=== PATIENT | female | born 1980 | race Caucasian/White ===

== ENCOUNTER 2016-11-11 01:21 | Emergency (ER) | payer OTHER ==
[~2016-11-11] VITALS: Ht 167.6 cm; Wt 77.5 kg
[~2016-11-11 01:21] MED LIST: AZIT250T94 PO; CALC500T PO; IBUP-1542 PO; PREN-39 PO; UDROBDM PO
[2016-11-11 01:24] VITALS: Ht 167.6 cm; Wt 77.5 kg
--- NOTE | 2016-11-11 02:32 | ERD ---
ER Documentation Chief Complaint Date/Time DATE: 11/11/16 TIME: 02:31 Chief Complaint 14 weeks , pelvic pain, back pain HPI 36-year-old female presents here in emergency department for complaints of pelvic pain and lower back pain started 2 days ago. Patient is approximately 14 weeks , 5 para 4 0. Patient denies any vaginal bleeding. Patient denies any fever or chills. Patient denies any nausea or vomiting. Patient denies hematuria or dysuria. Patient denies any vaginal discharge. Patient described the pain as sharp pain, 6/10 scale, not better or worse with anything. Patient denies any trauma on affected area. ROS All systems reviewed and are negative except as per history of present illness. Medications Home Meds Active Scripts Acetaminophen* (Tylophen*) 500 Mg Capsule, 1 CAP PO Q6H Y for PAIN AND OR ELEVATED TEMP, #20 CAP Prov:KATIE BHAKTA NP 11/11/16 Ibuprofen* (Motrin*) 600 Mg Tab, 600 MG PO Q6, #30 TAB Prov:TORSTEN MCFARLANE PA-C 05/14/16 Azithromycin* (Zithromax*) 250 Mg Tablet, 250 MG PO .ZPACK DIRECTED, #6 TAB TAKE 500 MG (2 TABS) THE FIRST DAY THEN 250 MG (1 TAB) DAYS 2-5 Prov:ERI ARRIETA DO 07/16/15 Guaifenesin-Dextromethorphan* (Robitussin* DM) 100MG/10MG/5ML Syrup, 10 ML PO Q6H Y for COUGH for 7 Days, ML Prov:ERI ARRIETA DO 07/16/15 Reported Medications Calcium Carbonate (Calcium 500) 1 Tab Tablet, 1 TAB PO DAILY 09/26/13 Vits W-Ca,Fe,Fa(<1MG) ( Vitamins) 1 Tab Tablet, 1 TAB PO DAILY 09/26/13 Allergies Allergies: Coded Allergies: No Known Allergy (Unverified , 09/26/13) PMhx/Soc Medical and Surgical Hx: pt denies Medical Hx, pt denies Surgical Hx History of Surgery: No ([facility]X.) Hx Alcohol Use: No Hx Substance Use: No Hx Tobacco Use: No Smoking Status: Never smoker FmHx Family History: diabetes Physical Exam Vitals Vital Signs Date Time Temp Pulse Resp B/P Pulse Ox O2 Delivery O2 Flow Rate FiO2 11/11/16 01:24 98.6 99 20 137/83 98 Physical Exam GENERAL: The patient is well developed and appropriate for usual state of health, in no apparent distress. CHEST: Clear to auscultation bilaterally. There are no rales, wheezes or rhonchi. HEART: Regular rate and rhythm. No murmurs, clicks, rubs or gallops. No S3 or S4. ABDOMEN: Soft, nontender and nondistended. Good bowel sounds. No rebound or guarding. No gross peritonitis. No gross organomegaly or masses. No Mcleod sign or McBurney point tenderness. BACK: No midline or flank tenderness. EXTREMITIES: Equal pulses bilaterally. There is no peripheral clubbing, cyanosis or edema. No focal swelling or erythema. Full range of motion. Grossly neurovascularly intact. NEURO: Alert and oriented. Cranial nerves 2-12 intact. Motor strength in all 4 extremities with 5/5 strength. Sensation grossly intact. Normal speech and gait. SKIN: There is no apparent rash or petechia. The skin is warm and dry. HEMATOLOGIC AND LYMPHATIC: There is no evidence of excessive bruising or lymphedema. No gross cervical, axillary, or inguinal lymphadenopathy. Result Diagram: 11/11/16 0245 11/11/16 0245 Results 24 hrs Laboratory Tests Test 11/11/16 02:45 White Blood Count 12.710^3/ul Red Blood Count 4.4110^6/ul Hemoglobin 14.0g/dl Hematocrit 38.4% Mean Corpuscular Volume 87.1fl Mean Corpuscular Hemoglobin 31.7pg Mean Corpuscular Hemoglobin Concent 36.5g/dl Red Cell Distribution Width 12.7% Platelet Count 45837^3/UL Mean Platelet Volume 10.8fl Neutrophils % 68.6% Lymphocytes % 23.9% Monocytes % 5.1% Eosinophils % 1.3% Basophils % 0.2% Nucleated Red Blood Cells % 0.0/100WBC Neutrophils # 8.710^3/ul Lymphocytes # 3.010^3/ul Monocytes # 0.610^3/ul Eosinophils # 0.210^3/ul Basophils # 0.010^3/ul Nucleated Red Blood Cells # 0.010^3/ul Urine Color STRAW Urine Clarity CLEAR Urine pH 5.0 Urine Specific [place] 1.009 Urine Ketones NEGATIVEmg/dL Urine Nitrite NEGATIVEmg/dL Urine Bilirubin NEGATIVEmg/dL Urine Urobilinogen NEGATIVEmg/dL Urine Leukocyte Esterase NEGATIVELeu/ul Urine Hemoglobin NEGATIVEmg/dL Urine Glucose NEGATIVEmg/dL Urine Total Protein NEGATIVEmg/dl Sodium Level 136mmol/L Potassium Level 3.7mmol/L Chloride Level 105mmol/L Carbon Dioxide Level 24mmol/L Anion Gap 11 Blood Urea Nitrogen 8mg/dl Creatinine 0.46mg/dl Glucose Level 98mg/dl Calcium Level 9.2mg/dl Total Bilirubin 0.0mg/dl Direct Bilirubin 0.00mg/dl Indirect Bilirubin 0.0mg/dl Aspartate Amino Transf (AST/SGOT) 19IU/L Alanine Aminotransferase (ALT/SGPT) 37IU/L Alkaline Phosphatase 57IU/L Total Protein 6.9g/dl Albumin 4.3g/dl Globulin 2.60g/dl Albumin/Globulin Ratio 1.65 Beta HCG, Quantitative 12407.0mIU/ml PROCEDURE: ULTRASOUND OBSTETRICAL CLINICAL INDICATION: 36-year-old female with pelvic pain. TECHNIQUE: Multiple sonographic images of the pelvis were obtained. The images were reviewed on a PACS workstation. COMPARISON: No prior studies are available for comparison. FINDINGS: The cervix is not well visualized. There is a single viable intrauterine gestation. Cardiac activity is present with 163 beats per minute. There is a breech presentation. Measurements were made in order to determine age. The results are as follows: BPD = 3.42 cm, HC = 12.07 cm, AC = 9.96 cm, FL = 2.18 cm. This yields and estimated gestational age of approximately 16 weeks 2 days. The estimated date of delivery is April 26, 2017. The EFW = 150 +/- 22 g . The GP is greater than 97%. The placenta is anterior. There is no evidence for an abruption or placenta previa. There is an adequate amount of amniotic fluid within maximal vertical pocket of 3.0 cm. IMPRESSION: Single viable intrauterine gestation of approximately 16 weeks 2 days. The estimated date of delivery is April 26, 2017. .Bandar Tavera MD, MD Date Time Electronically viewed and signed by .Bandar Tavera MD, MD on 11/11/2016 03:43 .M/ CC: KATIE BHAKTA NP Procedures/MDM Medical Decision Making: She has pelvic pain and lower back pain nonspecific at this time, possible musculoskeletal pain with her growing . No urinary tract infection. No symptoms of polynephritis. Patient is a viable without any complications. There is low suspicion for abdominal emergencies at this time. Patients abdominal exam is normal at this time. Patients radiology exam does not show any abdominal emergencies at this time. There is low suspicion for appendicitis, cholecystitis, abdominal aortic aneurysms or peritonitis at this time. There is low suspicion for sepsis. Patient appears well and is hemodynamically stable. No Leukocytosis, no fever, no bandemia. No suspicion for any acute bacterial infection at this time. Disposition: Home. Condition: Stable Prescription Tylenol Instructions: Patient is advised to take medications as prescribed. Patient is advised to rest, increase fluid intake and do brat diet for next 1-2 days and progress as tolerated. Patient is advised that if symptoms are worse, severe abdominal pain, uncontrolled vomiting, high fever, severe flank pain, worst signs and symptoms, to return to the emergency department immediately. Otherwise, patient can follow up with primary care doctor in 5-7 days. Departure Diagnosis: Primary Impression: Back pain Back pain location: low back pain Chronicity: acute Back pain laterality: bilateral Sciatica presence: without sciatica Qualified Code: M54.5 - Acute bilateral low back pain without sciatica Additional Impressions: Pelvic pain Intrauterine Condition: Stable Patient Instructions: Back Pain (Acute Or Chronic), Pelvic Pain In : Unclear (2-3 Trimester) Additional Instructions: Patient is advised to take medications as prescribed. Patient is advised to rest, increase fluid intake and do brat diet for next 1-2 days and progress as tolerated. Patient is advised that if symptoms are worse, severe abdominal pain , uncontrolled vomiting, high fever, severe flank pain, worst signs and symptoms , to return to the emergency department immediately. Otherwise, patient can follow up with primary care doctor in 5-7 days. KATIE BHAKTA NP Nov 11, 2016 02:32
[2016-11-11 03:11] LABS: ADD SCAN DIFF NO
[2016-11-11 03:13] LABS: BASOPHILS % 0.2 % (0.0-2.0); EOSINOPHILS # 0.2 10^3/ul (0.0-0.5); EOSINOPHILS % 1.3 % (0.0-7.0); HEMATOCRIT 38.4 % (37.0-47.0); LYMPHOCYTES % 23.9 % (15.0-51.0); MEAN CORPUSCULAR HEMOGLOBIN 31.7 pg (29.0-33.0); MEAN CORPUSCULAR HGB CONC 36.5 g/dl (32.0-37.0); MEAN CORPUSCULAR VOLUME 87.1 fl (82.0-101.0); MEAN PLATELET VOLUME 10.8 fl (7.4-10.4); MONOCYTE # 0.6 10^3/ul (0.3-0.9); MONOCYTES % 5.1 % (0.0-11.0); NEUTROPHIL # 8.7 10^3/ul (1.6-7.5); NEUTROPHILS % 68.6 % (39.0-77.0); PLATELET COUNT 183 10^3/UL (140-415); RED BLOOD COUNT 4.41 10^6/ul (4.20-5.40); RED CELL DISTRIBUTION WIDTH 12.7 % (11.5-14.5); WHITE BLOOD COUNT 12.7 10^3/ul (4.8-10.8)
[2016-11-11 03:43] LABS: ADD UMIC NO; UR ASCORBIC ACID NEGATIVE (NEGATIVE); UR BILIRUBIN (Dip) NEGATIVE (NEGATIVE); UR BLOOD (Dip) NEGATIVE (NEGATIVE); UR CLARITY CLEAR (CLEAR); UR COLOR STRAW (YELLOW); UR GLUCOSE (Dip) NEGATIVE (NEGATIVE); UR KETONES (Dip) NEGATIVE (NEGATIVE); UR LEUKOCYTE ESTERASE (Dip) NEGATIVE Leu/ul (NEGATIVE); UR NITRITE (Dip) NEGATIVE (NEGATIVE); UR SPECIFIC GRAVITY (Dip) 1.009 (1.003-1.030); UR TOTAL PROTEIN (Dip) NEGATIVE (NEGATIVE); UR UROBILINOGEN (Dip) NEGATIVE (NEGATIVE)
--- NOTE | 2016-11-11 03:43 | RADRPT ---
PROCEDURE: ULTRASOUND OBSTETRICAL CLINICAL INDICATION: 36-year-old female with pelvic pain. TECHNIQUE: Multiple sonographic images of the pelvis were obtained. The images were reviewed on a PACS workstation. COMPARISON: No prior studies are available for comparison. FINDINGS: The cervix is not well visualized. There is a single viable intrauterine gestation. Cardiac activit y is present with 163 beats per minute. There is a breech presentation. Measurements were made in or raul to determine age. The results are as follows: BPD = 3.42 cm, HC = 12.07 cm, AC = 9.96 cm, FL = 2.18 cm. This yields and estimated gestational ag e of approximately 16 weeks 2 days. The estimated date of delivery is April 26, 2017. The EFW = 150 +/- 22 g . The GP is greater than 97%. The placenta is anterior. There is no evidence for an abruption or placenta previa. There is an adequate amount of amniotic fluid within maximal vertical pocket of 3.0 cm. IMPRESSION: Single viable intrauterine gestation of approximately 16 weeks 2 days. The estimated date of delive ry is April 26, 2017. .Bandar Tavera MD, Date Time Electronically viewed and signed by .Bandar Tavera MD, on 11/11/2016 03:43 .M/
[2016-11-11 03:45] LABS: ALBUMIN 4.3 g/dl (3.3-4.9); ALBUMIN/GLOBULIN RATIO 1.65; CALCIUM 9.2 mg/dl (8.4-10.2); CREATININE 0.46 mg/dl (0.44-1.00); POTASSIUM 3.7 mmol/L (3.5-5.1); TOTAL PROTEIN 6.9 g/dl (6.1-8.1)
[2016-11-11] MEDS ORDERED: ACET500C5 PO (04:14)
[2016-11-11 04:56] VITALS: BP 133/77; PULSE 81; RESP 20; TEMP 98.6
== END 2016-11-11 04:57 | disposition home or self-care (01) ==
LOC: FTE 01:21
DX: O99.89 Other specified diseases and conditions complicating pregnancy, childbirth and the puerperium (principal); R10.2 Pelvic and perineal pain; M54.5 Low back pain; Z3A.14 14 weeks gestation of pregnancy
CPT/HCPCS: 36415; 76805; 80053; 81003; 84702; 85025; 86900; 86901; Z7502

== ENCOUNTER 2017-02-26 18:05 | Outpatient (CLI) | payer OTHER ==
[~2017-02-26] VITALS: Ht 154.9 cm; Wt 81.7 kg
[~2017-02-26 18:05] MED LIST changes: +ACET500C5 PO
[2017-02-26 18:50] VITALS: Ht 154.9 cm; Wt 81.7 kg
[2017-02-26 19:47] LABS: ADD UMIC NO; UR ASCORBIC ACID NEGATIVE (NEGATIVE); UR BACTERIA MANY /HPF (NONE SEEN); UR BILIRUBIN (Dip) NEGATIVE (NEGATIVE); UR BLOOD (Dip) NEGATIVE (NEGATIVE); UR CLARITY SLIGHTLY CLOUDY (CLEAR); UR COLOR YELLOW (YELLOW); UR GLUCOSE (Dip) NEGATIVE (NEGATIVE); UR KETONES (Dip) 1+ mg/dL (NEGATIVE); UR LEUKOCYTE ESTERASE (Dip) NEGATIVE Leu/ul (NEGATIVE); UR NITRITE (Dip) NEGATIVE (NEGATIVE); UR RBC 0 /HPF (0-5); UR SPECIFIC GRAVITY (Dip) 1.011 (1.003-1.030); UR SQUAMOUS EPITHELIAL CELL MODERATE /HPF (FEW); UR TOTAL PROTEIN (Dip) NEGATIVE (NEGATIVE); UR UROBILINOGEN (Dip) NEGATIVE (NEGATIVE)
[2017-02-26 19:52] LABS: ALBUMIN 3.6 g/dl (3.3-4.9); ALBUMIN/GLOBULIN RATIO 1.09; BILIRUBIN,INDIRECT 0.2 mg/dl (0-1.1); BILIRUBIN,TOTAL 0.2 mg/dl (0.2-1.3); CREATININE 0.44 mg/dl (0.44-1.00); POTASSIUM 3.5 mmol/L (3.5-5.1); TOTAL PROTEIN 6.9 g/dl (6.1-8.1); URIC ACID 4.3 mg/dl (3.1-7.9)
[2017-02-26 19:55] LABS: INR 0.92; PROTIME 12.4 Sec (12.2-14.2)
[2017-02-26 19:56] LABS: PARTIAL THROMBOPLASTIN TIME 21.7 Sec (25.0-35.0)
[2017-02-26 19:58] LABS: BASOPHILS % 0.3 % (0.0-2.0); EOSINOPHILS # 0.1 10^3/ul (0.0-0.5); EOSINOPHILS % 1.1 % (0.0-7.0); HEMOGLOBIN 13.8 g/dl (12.0-16.0); LYMPHOCYTES # 1.8 10^3/ul (0.8-2.9); LYMPHOCYTES % 15.4 % (15.0-51.0); MEAN CORPUSCULAR HEMOGLOBIN 31.2 pg (29.0-33.0); MEAN CORPUSCULAR HGB CONC 35.4 g/dl (32.0-37.0); MEAN PLATELET VOLUME 11.9 fl (7.4-10.4); MONOCYTE # 0.5 10^3/ul (0.3-0.9); MONOCYTES % 4.1 % (0.0-11.0); NEUTROPHIL # 9.1 10^3/ul (1.6-7.5); PLATELET COUNT 150 10^3/UL (140-415); RED BLOOD COUNT 4.43 10^6/ul (4.20-5.40); RED CELL DISTRIBUTION WIDTH 13.2 % (11.5-14.5); WHITE BLOOD COUNT 11.7 10^3/ul (4.8-10.8)
[2017-02-26 20:09] LABS: POSITIVE DIFF @See below
--- NOTE | 2017-02-26 20:30 | RADRPT ---
PROCEDURE: US biophysical profile. CLINICAL INDICATION: Hypertension. TECHNIQUE: Multiple sonographic images of the uterus were obtained. The images were revi ewed on a PACS workstation. COMPARISON: No prior studies are available for comparison. FINDINGS: There is a single live intrauterine gestation. heart rate is 139 beats per minute. The position is cephalic. The placenta is anterior grade 1 with no abruption or previa. The FIONA is 11.4 cm. (Normal = 5-20 cm.) Breathing Movement: 2 Gross Body Movement: 2 Tone: 2 Qualitative Amniotic Fluid Volume: 2 TOTAL: 8 IMPRESSION: 1. The biophysical score is 8/8. RPTAT: QQ .Henry Jasmine MD, Date Time Electronically viewed and signed by .Henry Jasmine MD, MD on 02/26/2017 20:30 .R/
[2017-02-26] MEDS ORDERED: FER325 PO (20:58)
[2017-02-26] MEDS ORDERED: FOLI-49 PO (20:58)
--- NOTE | 2017-02-26 21:29 | TRIAGE ---
OB Triage Datetime Report Generated by CPN: 02/26/2017 21:29 Datetime: 02/26/2017 20:39 Labor Evaluation Frequency: x2 Monitor Mode: External Duration (sec)2399: 60 Quality: Mild Pattern: Normal: <= 5 Contractions in 10 Minutes Resting Tone Niland: Relaxed Heart Rate FHR Baseline Rate: 135 Monitor Mode: External US Variability: Moderate 6-25 bpm Accelerations: 15X15 Decelerations: None Category: Category I Datetime: 02/26/2017 20:25 Monitor Mode: Palpation Resting Tone Niland: Relaxed Datetime: 02/26/2017 20:16 Comments: OFF MONITOR Datetime: 02/26/2017 20:00 Stage of : OB Triage Labor Evaluation Frequency: occ Monitor Mode: External Duration (sec)2399: 50-60 Quality: Mild Resting Tone Niland: Relaxed Heart Rate FHR Baseline Rate: 135 Monitor Mode: External US Variability: Moderate 6-25 bpm Accelerations: 15X15 Decelerations: None Category: Category I Datetime: 02/26/2017 19:38 Resting Tone Niland: Relaxed Datetime: 02/26/2017 19:35 Assessment Type: Triage Maternal Assessment Level of Consciousness: Fully Conscious DTR's/Clonus: DTRs 2+; No Clonus Headache: Denies Blurred Vision: No Respiratory Effort: Unlabored; Regular Rhythm; Equal Expansion Breath Sounds, Left: Clear and Equal Breath Sounds, Right: Clear and Equal Nausea/Vomiting: Denies RUQ Epigastric Pain: Denies Lower Extremities Edema: None Degree: None Upper Extremities Edema: None Degree: None Facial Edema: None Temperature Route: Oral Fall Risk Assessment History of Falling: (0) No Secondary Diagnosis: (0) No Ambulatory Aid: (0) Bedrest/Nurse Assist IV Therapy: (0) No Gait: (0) Normal/Bedrest/Immobile Mental Status: (0) Oriented to Own Ability Fall Score: 0 Fall Risk Score Definition: No Risk: No action required Pain Assessment Pain Scale: 0 Pain Presence: None/Denies Pain Type: N/A Pain Goal: 4 Datetime: 02/26/2017 18:46 Labor Evaluation Frequency: 0 Monitor Mode: External Heart Rate FHR Baseline Rate: 135 Monitor Mode: External US FHR Baseline Changes: No Baseline Change Variability: Moderate 6-25 bpm Accelerations: 15X15 Decelerations: None Category: Category I Pain Presence: None/Denies Datetime: 02/26/2017 18:30 EGA: 31.1 Datetime: 02/26/2017 18:29 Time of Arrival: 02/26/2017 18:00 Arrived By: Ambulatory Arrived From: Dr. Barr Chief Complaint: HIGH BP R/O PIH Movement: Present Contractions: Denies/Absent Rupture of Membranes: Denies Vaginal Bleeding: None Vaginal Discharge: Denies Recent Sexual Intercouse: Denies Abdominal Trauma: Not Applicable Patient Complaints: None Time Provider Notified: 02/26/2017 19:45 Provider Notified: DR. CURTIS Initial Plan: PIH Datetime: 02/26/2017 18:17 Stage of : OB Triage Assessment Type: Triage Maternal Assessment Level of Consciousness: Fully Conscious DTR's/Clonus: DTRs 2+; No Clonus Headache: Denies Blurred Vision: No Respiratory Effort: Unlabored; Regular Rhythm; Equal Expansion Breath Sounds, Left: Clear and Equal Breath Sounds, Right: Clear and Equal Nausea/Vomiting: Denies RUQ Epigastric Pain: Denies Lower Extremities Edema: None Degree: None Upper Extremities Edema: None Degree: None Facial Edema: None Fall Risk Assessment History of Falling: (0) No Secondary Diagnosis: (0) No Ambulatory Aid: (0) Bedrest/Nurse Assist IV Therapy: (0) No Gait: (0) Normal/Bedrest/Immobile Mental Status: (0) Oriented to Own Ability Fall Score: 0 Fall Risk Score Definition: No Risk: No action required Monitor Mode: External Heart Rate FHR Baseline Rate: 135 Monitor Mode: External US FHR Baseline Changes: No Baseline Change Variability: Moderate 6-25 bpm Accelerations: 15X15 Decelerations: None Category: Category I Pain Presence: None/Denies
--- NOTE | 2017-02-26 21:57 | PN ---
Triage Information Date/Time 02/26/172109 Reason for visit: PIH Weeks of Gestation 31w4d /Para Diabetes: none Hypertention: induced Additional information multiple measurement of BP 103-118/64-75 p85-100 Results/Medications Result Diagram: 02/26/17190202/26/171902 Results 24 hrs Laboratory Tests Test 02/26/17 18:30 02/26/17 19:03 Urine Color YELLOW Urine Clarity SLIGHTLY CLOUDY A Urine pH 6.0 Urine Specific [place] 1.011 Urine Ketones 1+ H Urine Nitrite NEGATIVE Urine Bilirubin NEGATIVE Urine Urobilinogen NEGATIVE Urine Leukocyte Esterase NEGATIVE Urine Microscopic RBC 0 Urine Microscopic WBC 6 H Urine Squamous Epithelial Cells MODERATE Urine Bacteria MANY A Urine Hemoglobin NEGATIVE Urine Glucose NEGATIVE Urine Total Protein NEGATIVE White Blood Count 11.7 H Red Blood Count 4.43 Hemoglobin 13.8 Hematocrit 39.0 Mean Corpuscular Volume 88.0 Mean Corpuscular Hemoglobin 31.2 Mean Corpuscular Hemoglobin Concent 35.4 Red Cell Distribution Width 13.2 Platelet Count 150 Mean Platelet Volume 11.9 H Neutrophils % 78.0 H Lymphocytes % 15.4 Monocytes % 4.1 Eosinophils % 1.1 Basophils % 0.3 Nucleated Red Blood Cells % 0.0 Neutrophils # 9.1 H Lymphocytes # 1.8 Monocytes # 0.5 Eosinophils # 0.1 Basophils # 0.0 Nucleated Red Blood Cells # 0.0 Prothrombin Time 12.4 Prothrombin Time Ratio 1.0 INR International Normalized Ratio 0.92 Activated Partial Thromboplast Time 21.7 L Sodium Level 139 Potassium Level 3.5 Chloride Level 108 Carbon Dioxide Level 20 L Anion Gap 15 Blood Urea Nitrogen 6 L Creatinine 0.44 Glucose Level 73 Uric Acid 4.3 Calcium Level 9.0 Total Bilirubin 0.2 Direct Bilirubin 0.00 Indirect Bilirubin 0.2 Aspartate Amino Transf (AST/SGOT) 27 Alanine Aminotransferase (ALT/SGPT) 39 Alkaline Phosphatase 130 H Total Protein 6.9 Albumin 3.6 Globulin 3.30 H Albumin/Globulin Ratio 1.09 Medications none Imaging Results BPP 8 FIONA 11.4 Disposition: Discharge Assessment/Plan IUP 31w1d R/O PIH Plan discharge home f/u at clinic for care addendum all the info given to patient per interpretor RASHAWN CURTIS MD Feb 26, 2017 21:57
== END 2017-02-26 21:15 | disposition home or self-care (01) ==
LOC: OBT 18:05 → L-D 18:05 → OBT 21:15
PROVIDERS: ATTEND Obstetrics & Gynecology
DX: O13.3 Gestational [pregnancy-induced] hypertension without significant proteinuria, third trimester (principal); Z3A.31 31 weeks gestation of pregnancy
CPT/HCPCS: 76818; 80053; 81001; 84560; 85025; 85610; 85730; Z7500; 81003; G0463

== ENCOUNTER 2017-03-26 02:58 | Inpatient (IN) | payer OTHER ==
[~2017-03-26] VITALS: Ht 154.9 cm; Wt 84.9 kg
[~2017-03-26 02:58] MED LIST changes: -AZIT250T94 PO; +FER325 PO; +FOLI-49 PO; -IBUP-1542 PO; -UDROBDM PO
[2017-03-26 03:28] VITALS: BP 126/87; PULSE 105; RESP 19; Ht 154.9 cm; Wt 84.9 kg
[2017-03-26] MEDS ORDERED: LACTATED RINGER'S 1,000 ML IV ONE (04:00)
[2017-03-26 04:28] LABS: BASOPHIL # 0.1 10^3/ul (0.0-0.1); BASOPHILS % 0.4 % (0.0-2.0); EOSINOPHILS # 0.2 10^3/ul (0.0-0.5); EOSINOPHILS % 1.9 % (0.0-7.0); HEMATOCRIT 38.6 % (37.0-47.0); HEMOGLOBIN 13.8 g/dl (12.0-16.0); LYMPHOCYTES # 1.8 10^3/ul (0.8-2.9); LYMPHOCYTES % 13.8 % (15.0-51.0); MEAN CORPUSCULAR HEMOGLOBIN 31.4 pg (29.0-33.0); MEAN CORPUSCULAR HGB CONC 35.8 g/dl (32.0-37.0); MEAN CORPUSCULAR VOLUME 87.7 fl (82.0-101.0); MEAN PLATELET VOLUME 11.6 fl (7.4-10.4); MONOCYTE # 0.5 10^3/ul (0.3-0.9); NEUTROPHIL # 10.1 10^3/ul (1.6-7.5); NEUTROPHILS % 78.7 % (39.0-77.0); PLATELET COUNT 131 10^3/UL (140-415); RED CELL DISTRIBUTION WIDTH 13.4 % (11.5-14.5); WHITE BLOOD COUNT 12.8 10^3/ul (4.8-10.8)
--- NOTE | 2017-03-26 04:32 | RADRPT ---
PROCEDURE: US OB biophysical profile. CLINICAL INDICATION: labor. TECHNIQUE: Multiple sonographic images of the pelvis were obtained. The images were reviewed on a PACS workstation. COMPARISON: 02/26/2017. FINDINGS: There is a single live intrauterine gestation. There is a normal amount of amniotic fluid with an FIONA = 6.4 cm. Cardiac activity is present with 163 beats per minute. There is a cephalic presentation. The placenta is anterior grade II with no abruption or previa. MVP = <US.OB.FETUS1.MVP>> cm Biophysical profile: movement 2/2 tone 2/2. breathing 2/2 FIONA 2/2 Total 12/23 IMPRESSION: The biophysical profile score is 8/8 RPTAT: HRSR Physician Sarah Date Time Electronically viewed and signed by Physician Sarah on 03/26/2017 04:31 RR/
--- NOTE | 2017-03-26 04:37 | RADRPT ---
PROCEDURE: US OB. CLINICAL INDICATION: labor. TECHNIQUE: Multiple sonographic images of the pelvis were obtained. The images were reviewed on a PACS workstation. COMPARISON: ultrasound 11/11/2016, biophysical profile 02/26/2017. FINDINGS: The cervix is not well visualized. There is a single viable intrauterine gestation. Cardiac activity is present with 158 beats per min [place]. There is a cephalic presentation. Measurements were made in order to determine age. The results are as follows: BPD =8.9 cm HC =31.89 cm AC =31.45 cm FL =6.86 cm. Estimated gestational age of approximately 35.5 days. The estimated date of delivery is 04/25/2017. The EFW = 2689 g. The placenta is anterior. There is no evidence for an abruption or placenta previa. There is a normal amount of amniotic fluid with an FIONA = 6.4 cm. There are no adnexal masses . IMPRESSION: Single viable intrauterine gestation of approximately 35 weeks 5 days. The estimated date of delive ry is 04/25/2017 . RPTAT: HRSR Physician Sarah Date Time Electronically viewed and signed by Physician Sarah on 03/26/2017 04:37 RR/
[2017-03-26 04:40] LABS: ADD UMIC YES; UR ASCORBIC ACID NEGATIVE (NEGATIVE); UR BACTERIA MANY /HPF (NONE SEEN); UR BILIRUBIN (Dip) NEGATIVE (NEGATIVE); UR BLOOD (Dip) NEGATIVE (NEGATIVE); UR CLARITY CLOUDY (CLEAR); UR COLOR YELLOW (YELLOW); UR GLUCOSE (Dip) NEGATIVE (NEGATIVE); UR KETONES (Dip) 1+ mg/dL (NEGATIVE); UR LEUKOCYTE ESTERASE (Dip) NEGATIVE Leu/ul (NEGATIVE); UR MUCUS MODERATE /HPF (NONE SEEN); UR NITRITE (Dip) NEGATIVE (NEGATIVE); UR RBC 4 /HPF (0-5); UR SPECIFIC GRAVITY (Dip) 1.025 (1.003-1.030); UR SQUAMOUS EPITHELIAL CELL FEW /HPF (FEW); UR TOTAL PROTEIN (Dip) 2+ mg/dl (NEGATIVE); UR UROBILINOGEN (Dip) NEGATIVE (NEGATIVE)
[2017-03-26 04:54] LABS: ALBUMIN 3.1 g/dl (3.3-4.9); ALBUMIN/GLOBULIN RATIO 0.93; BILIRUBIN,INDIRECT 0.1 mg/dl (0-1.1); BILIRUBIN,TOTAL 0.1 mg/dl (0.2-1.3); CALCIUM 8.9 mg/dl (8.4-10.2); CREATININE 0.42 mg/dl (0.44-1.00); POTASSIUM 3.7 mmol/L (3.5-5.1); TOTAL PROTEIN 6.4 g/dl (6.1-8.1); URIC ACID 4.3 mg/dl (3.1-7.9)
[2017-03-26] MEDS ORDERED: BETAMET NA PHOS/AC(6 MG/ML) 5ML INJ IM ONE (05:30)
--- NOTE | 2017-03-26 06:10 | HP ---
Date/Time of Note Date/Time of Note DATE: 03/26/17 TIME: 06:00 OB - History Hx of Present Free Text/Dictation 03/26/2017 : 5 Para: 4 Spontaneous : 0 Other Concerns: 36-year-old with IUP at 35 weeks and 1 day with history of 3 and prior vaginal delivery 1 presented with complaint of contractions since 3 PM yesterday as well as decreased movements. Patient reports that had a history of hypertension. Is not on medication. Her blood pressure today is 126 /87. She denies any headache, blurred vision or epigastric pain . Patient reports that her blood pressure in the last visit was elevated in the office. She also complained of leaking of fluid for the past couple of days, small amount. Unsure if it is urine or amniotic fluid. Cervical exam showed cervix closed/50%/high She was noted to have deceleration during observation in triage and for that reason she was admitted for prolonged observation. Decision was made to give the patient 1 dose of steroid. Past Family/Social History * Past Medical, Surgical, Family and Obstetric Histories reviewed from chart. OB Admission Exam Vital Signs Vital Signs Vital Signs Date Time Temp Pulse Resp B/P Pulse Ox O2 Delivery O2 Flow Rate FiO2 03/26/17 03:28 97.9 105 19 126/87 Room Air Physical Exam HEENT: WNL Lungs: Clear Abdomen: WNL Reflexes: Normal Cervical Dilatation: None Effacement: 50% Station: -2 Heart Rate: 130's Decelerations: Late Decelarations Varibility: Moderate Contractions on Admission: 6-10 Minutes Apart Intensity: Mild Last 72 hours Lab Results CBC & BMP 03/26/17 04:05 Liver Function Test 03/26/17 04:05 Alanine Aminotransferase (ALT/SGPT) 32 Albumin 3.1 L Alkaline Phosphatase 171 H Aspartate Amino Transf (AST/SGOT) 20 Direct Bilirubin 0.00 Total Protein 6.4 OB Assessment/Plan Other Assessment: IUP at 35 weeks and 1 day History of sectionx 3 Borderline diastolic elevated BP. Asymptomatic, PIH labs ordered. No evidence of PPROM.. ROM + negative FIONA: 6.4. Plan: Expectant Management Other plan: Patient will be admjitted to antepartum service Patient had one episode of deceleration down to 100 's lasted for 1.5 min and resolved. Borderline elevated diastolic blood pressure. We will continue to monitor closely. PIH labs are negative Borderline oligohydramnios will start hydration. Repeat FIONA after 24 hours Patient received 1 dose of steroid, due to chance of delivery prior to 37 weeks Will receive the second dose after 24 hours Perinatology/neonatology consultation Obtain GBS swab from the clinic where it was done History of 3 will have repeat for delivery, Plan discussed with the patient and nursing staff. MAKAYLA CALLOWAY MD Mar 26, 2017 06:10
[2017-03-26 06:40] VITALS: BP 136/73; PULSE 102; RESP 18
[2017-03-26] MEDS: LACTATED RINGER'S 1,000 ML IV SCH ×3 (06:54→17:38)
--- NOTE | 2017-03-26 12:26 | CONS ---
DATE OF ADMISSION: 03/26/2017 DATE OF CONSULTATION: 03/26/2017 consult requested by the geological e logger, Dr. Cunningham. A 36-year-old 5 and para 4 mom admitted to antepartum, with history of low FIONA and 2 minute deceleration in the triage. Biophysical score is 8/8 and has low FIONA. Mom has no uterine contractions. Gestational age 35 and 1/7 weeks. EDC 04/29/2017. Mom is on observation and not on any medications. Estimated weight is 2689 grams. Mom has history of premature baby around 34 weeks' gestational age with weight of 4 pounds. I have spoken to the mother with the help of an road sign installer and explained to her about late prematurity, low weight, possible respiratory distress and oxygen therapy and an NICU followup, risk for sepsis and antibiotic therapy as needed, feeding problems of prematurity with poor nippling, hyperbilirubinemia and risk of neurodevelopmenta l problems in the long run secondary to prematurity. Mom seems to understand the risks of prematuri ty and had appropriate questions that were answered. Thank you very much for allowing me to take part in the care of this patient. We will follow the mo ther and baby as needed. Dictated By: ANA COONEY/FRANCOISE Conf#: [id number] DID#: [id number]
--- NOTE | 2017-03-26 18:59 | RADRPT ---
PROCEDURE: Limited obstetric ultrasound CLINICAL INDICATION: Pain TECHNIQUE: Multiple transverse and longitudinal grayscale images of the pelvis were obtained sabdominally and transvaginally.. COMPARISON: same day FINDINGS: The cervix is closed with a length of 3.4 cm. There is a single viable intrauterine gestation. Cardiac activity is present with 144 beats per min [place]. There is a vertex presentation. The placenta is anterior. There is no evidence for an abruption or placenta previa. There is a normal amount of amniotic fluid with an FIONA = 8.2 cm. RPTAT: AA IMPRESSION: Cervix length measures 3.4 cm. .Librado Zhou MD, MD Date Time Electronically viewed and signed by .Librado Zhou MD, on 03/26/2017 18:59 .S/
--- NOTE | 2017-03-27 00:31 | CONS ---
DATE OF ADMISSION: 03/26/2017 DATE OF CONSULTATION: 03/26/2017 HISTORY OF PRESENT ILLNESS: The patient is a 36-year-old G5, P4, at 35 weeks and 1 day, presented t o the hospital because of the FIONA of 6.4 cm. She has a history of 3 prior C-sections and also a his tory of a delivery at 33 weeks. Primary MD has started her on betamethasone. She received the first dose today. PAST MEDICAL HISTORY: As above. REVIEW OF SYSTEMS: Negative except for what is mentioned above. VITAL SIGNS: Stable. PHYSICAL EXAMINATION: Deferred. heart tones reassuring for gestational age. IMPRESSION: Intrauterine at 35 weeks and 1 day with borderline oligohydramnios with an am niotic fluid index of 6.4 cm, receiving intravenous hydration, received betamethasone first dose tosebastien hope. RECOMMENDATIONS: Continue with the IV hydration. If the FIONA tomorrow on the test is over 8 cm, she can be discharged home with followup with testing. If it is not, I do recommend inpatien t management until the FIONA reaches 8 cm or 37 weeks, whichever comes first. Earlier delivery is recommended if there are nonreassuring heart tones or there is severe olig ohydramnios with FIONA of 2 or 3 cm. Continue with the betamethasone as per protocol. Dictated By: ESSIE PIRES/FRANCOISE Conf#: [id number] DID#: [id number]
[2017-03-27] MEDS: LACTATED RINGER'S 1,000 ML IV SCH (01:23)
[2017-03-27] MEDS ORDERED: BETAMET NA PHOS/AC(6 MG/ML) 5ML INJ IM ONE (05:30)
--- NOTE | 2017-03-27 08:48 | RADRPT ---
PROCEDURE: Limited OB ultrasound CLINICAL INDICATION: Oligohydramnios TECHNIQUE: Sonographic evaluation to assess the FIONA was performed. Transabdominal imaging of the gravid uterus was performed. COMPARISON: OB ultrasound for FIONA dated 03/26/2017 FINDINGS: There is a single live intrauterine with a heart rate of 146 bpm. position is cephalic. The placenta is anterior. The FIONA measures 10.2 cm. IMPRESSION: The FIONA measures 10.2 cm. RPTAT: HH .Gisselle Hernandez MD, MD Date Time Electronically viewed and signed by .Gisselle Hernandez MD, on 03/27/2017 08:48 .G/
--- NOTE | 2017-03-27 09:55 | PD.PPDC ---
BLADDER CHANGER Discharge Instruction Condition Patient Condition: Good Diet Diet: Resume Regular Diet Special Diet: ORAL hydration recommended Activity/Restrictions Activity: Normal Activity Restrictions: No Exercising Follow-up Follow-up with Physician: 2, Day/Days Provider Information: Recommended to make appointment with triage to repeat NST FIONA in 2 days Return to clinic for [employer] MECH[employer]IC Instructions: Fever greater than 101 Chills Worsening abdominal pain Excessive Vaginal Bleeding More than 2 pads per hour Unable to tolerate diet ALYSON SPEARS MD Mar 27, 2017 09:55
--- NOTE | 2017-03-27 10:16 | DS ---
Date/Time of Note Date/Time of Note DATE: 03/27/17 TIME: 09:58 Discharge Summary Admission/Discharge Info Admit Date/Time Mar 26, 2017 at 06:10 Discharge Date/Time March 27, 2017 at 9:30 AM Discharge Diagnosis 35 weeks rule out premature rupture of membrane Patient Condition: Good Consults Perinatologist Procedures Observation to rule out premature rupture of membrane as well as labor Hx of Present Illness 36 years old history of 3 previous section admitted to the hospital to rule out labor , with low FIONA suspect premature rupture of membrane , on admission she underwent biophysical profile report 12/23 with FIONA 6.4, received IV hydration FIONA went up to 10.2 today perinatologist recommended patient may go home with follow-up to check on FIONA, she has an appointment on 03/27/2017 at triage unit to repeat biophysical profile, she has given labor instructions, kick count, to return to hospital labor and delivery room if noted any leakage from the vagina. Or uterine contraction. Hospital Course Satisfactory Home Meds Active Scripts Acetaminophen* (Tylophen*) 500 Mg Capsule, 1 CAP PO Q6H Y for PAIN AND OR ELEVATED TEMP, #20 CAP Prov:KATIE BHAKTA NP 11/11/16 Reported Medications Folic Acid* (Folic Acid*) 1 Mg Tablet, 1 MG PO DAILY, TAB 02/26/17 Ferrous Sulfate* (Ferrous Sulfate*) 325 Mg Tabec, 325 MG PO DAILY, TAB 02/26/17 Calcium Carbonate (Calcium 500) 1 Tab Tablet, 1 TAB PO DAILY 09/26/13 Vits W-Ca,Fe,Fa(<1MG) ( Vitamins) 1 Tab Tablet, 1 TAB PO DAILY 09/26/13 Follow-up Plan Return to triage on March 29, 2017 for NST FIONA Primary Care Provider Maurice Mathews Time spent on discharge: < 30 minutes ALYSON SPEARS MD Mar 27, 2017 10:08
== END 2017-03-27 10:18 | disposition home or self-care (01) | DRG 782 ==
LOC: OBT 02:58 → L-D 02:58 → OBT 06:10 → OBG 06:10
PROVIDERS: ADMIT Obstetrics & Gynecology; ATTEND Obstetrics & Gynecology
DX: O36.8130 Decreased fetal movements, third trimester, not applicable or unspecified (principal); O41.03X0 Oligohydramnios, third trimester, not applicable or unspecified; O76 Abnormality in fetal heart rate and rhythm complicating labor and delivery; Z3A.35 35 weeks gestation of pregnancy
CPT/HCPCS: 36415; 76815; 76816; 76817; 76818; 80053; 81001; 84112; 84560; 85025; 96360; 96361; 96372; G0463; J0702; J7120

== ENCOUNTER 2017-03-29 11:30 | Outpatient (CLI) | payer OTHER ==
[~2017-03-29] VITALS: Ht 157.5 cm; Wt 85.0 kg
[2017-03-29 11:42] VITALS: Ht 157.5 cm; Wt 85.0 kg
[2017-03-29 11:43] VITALS: BP 124/73; PULSE 90; RESP 20
--- NOTE | 2017-03-29 12:37 | RADRPT ---
PROCEDURE: OB ultrasound for biophysical profile. CLINICAL INDICATION: Low amniotic fluid index. TECHNIQUE: Multiple sonographic images of the pelvis were obtained. Transabdominal view of the gr avid uterus are available for review. COMPARISON: 03/27/2017. FINDINGS: breathing movement = 2/2 tone = 2/2 motion = 2/2 FIONA = 9.4 cm, previously 10.2 cm. Single live intrauterine with cardiac activity (154 beats per minute). Anterior placenta. IMPRESSION: 1. Single viable intrauterine gestation. 2. Biophysical profile = 8. 3. FIONA = 9.4 cm. RPTAT: EE .Arturo Cummins MD, MD Date Time Electronically viewed and signed by .Arturo Cummins MD, MD on 03/29/2017 12:42 .C/
--- NOTE | 2017-03-29 13:28 | TRIAGE ---
OB Triage Datetime Report Generated by CPN: 03/29/2017 13:27 Datetime: 03/29/2017 12:44 Labor Evaluation Frequency: NONE Pattern: Normal: <= 5 Contractions in 10 Minutes Heart Rate FHR Baseline Rate: 145 Monitor Mode: External US FHR Baseline Changes: No Baseline Change Variability: Moderate 6-25 bpm Accelerations: 15X15 Decelerations: None Category: Category I Pain Assessment Pain Scale: 0 Pain Presence: None/Denies Pain Goal: 0 Datetime: 03/29/2017 11:39 Maternal Assessment Level of Consciousness: Fully Conscious DTR's/Clonus: DTRs 2+ Headache: Denies Blurred Vision: No Nausea/Vomiting: Denies RUQ Epigastric Pain: Denies Facial Edema: None Labor Evaluation Frequency: NONE Pattern: Normal: <= 5 Contractions in 10 Minutes Heart Rate FHR Baseline Rate: 150 Monitor Mode: External US FHR Baseline Changes: No Baseline Change Variability: Moderate 6-25 bpm Accelerations: 15X15 Decelerations: None Category: Category I Pain Assessment Pain Scale: 0 Pain Presence: None/Denies Pain Goal: 0 Membrane Status: Intact Datetime: 03/27/2017 09:51 Time of Arrival: 03/29/2017 11:30 EGA: 35.4 Arrived By: Ambulatory Arrived From: Home Chief Complaint: HERE FOR NST/FIONA Movement: Present Contractions: Denies/Absent Rupture of Membranes: Denies Vaginal Bleeding: None Vaginal Discharge: Denies Recent Sexual Intercouse: Denies Abdominal Trauma: Not Applicable Patient Complaints: Other Time Provider Notified: 03/29/2017 11:35 Provider Notified: DR SPEARS Initial Plan: EFM,CALL DR SPEARS Datetime: 03/27/2017 09:00 Stage of : Antepartum Maternal Assessment Level of Consciousness: Fully Conscious Headache: Denies Nausea/Vomiting: Denies RUQ Epigastric Pain: Denies Heart Rate FHR Baseline Rate: 140 Variability: Moderate 6-25 bpm Accelerations: 15X15 Decelerations: None Datetime: 03/27/2017 08:50 Maternal Assessment Level of Consciousness: Fully Conscious Headache: Denies Blurred Vision: No Nausea/Vomiting: Denies Labor Evaluation Frequency: 0 Resting Tone Oriental: Relaxed Monitor Mode: External US Pain Presence: None/Denies Datetime: 03/27/2017 08:00 Stage of : Antepartum Maternal Assessment Level of Consciousness: Fully Conscious Headache: Denies Blurred Vision: No Respiratory Effort: Unlabored Nausea/Vomiting: Denies RUQ Epigastric Pain: Denies Heart Rate FHR Baseline Rate: 140 Variability: Moderate 6-25 bpm Accelerations: 15X15 Decelerations: None Category: Category I Datetime: 03/27/2017 07:41 Assessment Type: Ongoing Assessment Maternal Assessment Level of Consciousness: Fully Conscious DTR's/Clonus: DTRs 2+; No Clonus Headache: Denies Blurred Vision: No Respiratory Effort: Unlabored; Regular Rhythm; Equal Expansion Breath Sounds, Left: Clear and Equal Breath Sounds, Right: Clear and Equal Nausea/Vomiting: Denies RUQ Epigastric Pain: Denies Lower Extremities Edema: None Degree: None Upper Extremities Edema: None Degree: None Facial Edema: None Fall Risk Assessment History of Falling: (0) No Secondary Diagnosis: (0) No Ambulatory Aid: (0) Bedrest/Nurse Assist IV Therapy: (0) No Gait: (0) Normal/Bedrest/Immobile Mental Status: (0) Oriented to Own Ability Fall Score: 0 Fall Risk Score Definition: No Risk: No action required Datetime: 03/27/2017 07:35 Resting Tone Oriental: Relaxed Datetime: 03/27/2017 07:33 Pain Presence: None/Denies Datetime: 03/27/2017 07:20 Stage of : Antepartum Datetime: 03/27/2017 07:00 Labor Evaluation Frequency: X5 Monitor Mode: External Duration (sec)2399: 50-80 Quality: Mild Resting Tone Oriental: Relaxed Heart Rate FHR Baseline Rate: 135 Monitor Mode: External US Variability: Moderate 6-25 bpm Accelerations: 15X15 Decelerations: None Category: Category I Pain Presence: None/Denies Pain Type: N/A Amniotic Fluid Amount: None Vaginal Bleeding: None Datetime: 03/27/2017 06:00 Stage of : Antepartum Labor Evaluation Frequency: X3 Monitor Mode: External Duration (sec)2399: 60-70 Quality: Mild Resting Tone Oriental: Relaxed Heart Rate FHR Baseline Rate: 135 Monitor Mode: External US Variability: Moderate 6-25 bpm Accelerations: 15X15 Decelerations: None Category: Category I Pain Presence: None/Denies Pain Type: N/A Membrane Status: Intact Vaginal Bleeding: None Datetime: 03/27/2017 05:32 Stage of : Antepartum Datetime: 03/27/2017 05:00 Labor Evaluation Frequency: X3 Monitor Mode: External Duration (sec)2399: 60-70 Quality: Mild Resting Tone Oriental: Relaxed Heart Rate FHR Baseline Rate: 140 Monitor Mode: External US Variability: Moderate 6-25 bpm Accelerations: 15X15 Decelerations: None Category: Category I Pain Presence: None/Denies Pain Type: N/A Datetime: 03/27/2017 04:00 Labor Evaluation Frequency: X2 Monitor Mode: External Duration (sec)2399: 50-60 Quality: Mild Resting Tone Oriental: Relaxed Heart Rate FHR Baseline Rate: 135 Variability: Moderate 6-25 bpm Accelerations: 15X15 Decelerations: None Category: Category I Pain Presence: None/Denies Pain Type: N/A Pain Assessment Comments: PT REMAIS ASLEEP AT THIS TIME Datetime: 03/27/2017 03:00 Labor Evaluation Frequency: X1 Monitor Mode: External Duration (sec)2399: 70 Quality: Mild Resting Tone Oriental: Relaxed Heart Rate FHR Baseline Rate: 135 Monitor Mode: External US Variability: Moderate 6-25 bpm Accelerations: 15X15 Decelerations: None Category: Category I Pain Presence: None/Denies Pain Type: N/A Pain Assessment Comments: PT SLEEPING WITH EVEN UNLABORED BREATHING Datetime: 03/27/2017 02:33 Monitor Mode: External US Datetime: 03/27/2017 02:00 Labor Evaluation Frequency: NONE Monitor Mode: External Resting Tone Oriental: Relaxed Heart Rate FHR Baseline Rate: 140 Monitor Mode: External US Variability: Moderate 6-25 bpm Accelerations: 15X15 Decelerations: None Category: Category I Pain Presence: None/Denies Pain Type: N/A Datetime: 03/27/2017 01:23 Stage of : Antepartum Datetime: 03/27/2017 01:00 Labor Evaluation Frequency: NONE Monitor Mode: External Resting Tone Oriental: Relaxed Heart Rate FHR Baseline Rate: 135 Monitor Mode: External US Variability: Moderate 6-25 bpm Accelerations: 15X15 Decelerations: None Category: Category I Pain Presence: None/Denies Pain Type: N/A Datetime: 03/27/2017 00:04 Stage of : Antepartum Temperature Route: Oral Datetime: 03/27/2017 00:00 Labor Evaluation Frequency: NONE Monitor Mode: External Resting Tone Oriental: Relaxed Heart Rate FHR Baseline Rate: 130 Variability: Moderate 6-25 bpm Accelerations: 15X15 Decelerations: None Category: Category I Pain Presence: None/Denies Pain Type: N/A Datetime: 03/26/2017 23:00 Labor Evaluation Frequency: NONE Monitor Mode: External Resting Tone Oriental: Relaxed Heart Rate FHR Baseline Rate: 140 Variability: Moderate 6-25 bpm Accelerations: 15X15 Decelerations: None Category: Category I Pain Presence: None/Denies Pain Type: N/A Datetime: 03/26/2017 22:00 Labor Evaluation Frequency: NONE Monitor Mode: External Resting Tone Oriental: Relaxed Heart Rate FHR Baseline Rate: 140 Monitor Mode: External US Variability: Moderate 6-25 bpm Accelerations: 15X15 Decelerations: Variable Category: Category II Pain Presence: None/Denies Pain Type: N/A Datetime: 03/26/2017 21:24 Monitor Mode: External US Datetime: 03/26/2017 20:00 Labor Evaluation Frequency: NONE Monitor Mode: External Resting Tone Oriental: Relaxed Heart Rate FHR Baseline Rate: 140 Variability: Moderate 6-25 bpm Accelerations: 15X15 Decelerations: None Category: Category I Pain Presence: None/Denies Pain Type: N/A Datetime: 03/26/2017 19:28 Stage of : Antepartum Assessment Type: Ongoing Assessment Maternal Assessment Level of Consciousness: Fully Conscious DTR's/Clonus: DTRs 2+; No Clonus Headache: Denies Blurred Vision: No Respiratory Effort: Unlabored; Regular Rhythm; Equal Expansion Breath Sounds, Left: Clear and Equal Breath Sounds, Right: Clear and Equal Nausea/Vomiting: Denies RUQ Epigastric Pain: Denies Lower Extremities Edema: None Degree: None Upper Extremities Edema: None Degree: None Facial Edema: None Temperature Route: Oral Fall Risk Assessment History of Falling: (0) No Secondary Diagnosis: (0) No Ambulatory Aid: (0) Bedrest/Nurse Assist IV Therapy: (0) No Gait: (0) Normal/Bedrest/Immobile Mental Status: (0) Oriented to Own Ability Fall Score: 0 Fall Risk Score Definition: No Risk: No action required Contraction Comments: PT DENIES CRAMPING Comments: PT STATES + FM Pain Presence: None/Denies Pain Type: N/A Membrane Status: Intact Vaginal Bleeding: None Datetime: 03/26/2017 18:59 Labor Evaluation Frequency: 0 Monitor Mode: External Duration (sec)2399: 0 Pattern: Normal: <= 5 Contractions in 10 Minutes Resting Tone Oriental: Relaxed Contraction Comments: ABDOMEN SOFT TO PALPATION. DENIES ANY UC'S Heart Rate FHR Baseline Rate: 135 Monitor Mode: External US FHR Baseline Changes: No Baseline Change Variability: Moderate 6-25 bpm Accelerations: 15X15 Decelerations: None Category: Category I Datetime: 03/26/2017 17:55 Labor Evaluation Frequency: 0 Monitor Mode: External Duration (sec)2399: 0 Pattern: Normal: <= 5 Contractions in 10 Minutes Resting Tone Oriental: Relaxed Contraction Comments: DENIES ANY UC'S Heart Rate FHR Baseline Rate: 140 Monitor Mode: External US Comments: SCATTERED CONTACT. PT SITTING UP EATING. Datetime: 03/26/2017 17:31 Comments: PT SITTING UP EATING DINNER Datetime: 03/26/2017 16:55 Labor Evaluation Frequency: 0 Monitor Mode: External Duration (sec)2399: 0 Pattern: Normal: <= 5 Contractions in 10 Minutes Heart Rate FHR Baseline Rate: 140 Monitor Mode: External US FHR Baseline Changes: No Baseline Change Variability: Moderate 6-25 bpm Accelerations: 15X15 Decelerations: None Category: Category I Datetime: 03/26/2017 15:55 Labor Evaluation Frequency: 0 Monitor Mode: External Duration (sec)2399: 0 Pattern: Normal: <= 5 Contractions in 10 Minutes Resting Tone Oriental: Relaxed Contraction Comments: DENIES FEELING ANY UC'S. SOME SCATTERED IRRITABILITY NOTED Heart Rate FHR Baseline Rate: 140 Monitor Mode: External US FHR Baseline Changes: No Baseline Change Variability: Moderate 6-25 bpm Accelerations: 15X15 Decelerations: None Category: Category I Datetime: 03/26/2017 15:00 Labor Evaluation Frequency: 0 Monitor Mode: External Duration (sec)2399: 0 Pattern: Normal: <= 5 Contractions in 10 Minutes Resting Tone Oriental: Relaxed Contraction Comments: DENIES FEELING ANY UC'S Heart Rate FHR Baseline Rate: 130 Monitor Mode: External US FHR Baseline Changes: No Baseline Change Variability: Moderate 6-25 bpm Accelerations: 15X15 Decelerations: None Category: Category I Datetime: 03/26/2017 13:59 Labor Evaluation Frequency: 0 Monitor Mode: External Duration (sec)2399: 0 Pattern: Normal: <= 5 Contractions in 10 Minutes Resting Tone Oriental: Relaxed Contraction Comments: DENIES FEELING ANY UC'S Heart Rate FHR Baseline Rate: 125 Monitor Mode: External US FHR Baseline Changes: No Baseline Change Variability: Moderate 6-25 bpm Accelerations: 15X15 Decelerations: None Category: Category I Datetime: 03/26/2017 13:25 Monitor Mode: External US Datetime: 03/26/2017 12:59 Labor Evaluation Frequency: 0 Monitor Mode: External Duration (sec)2399: 0 Pattern: Normal: <= 5 Contractions in 10 Minutes Resting Tone Oriental: Relaxed Contraction Comments: DENIES FEELING ANY UC'S Heart Rate FHR Baseline Rate: 140 Monitor Mode: External US FHR Baseline Changes: No Baseline Change Variability: Moderate 6-25 bpm Accelerations: 15X15 Decelerations: None Category: Category I Datetime: 03/26/2017 12:00 Labor Evaluation Frequency: 0 Monitor Mode: External Duration (sec)2399: 0 Pattern: Normal: <= 5 Contractions in 10 Minutes Resting Tone Oriental: Relaxed Contraction Comments: DENIES FEELING ANY UC'S Heart Rate FHR Baseline Rate: 150 Monitor Mode: External US FHR Baseline Changes: No Baseline Change Variability: Moderate 6-25 bpm Accelerations: 15X15 Decelerations: Variable Category: Category I Datetime: 03/26/2017 11:00 Labor Evaluation Frequency: 0 Monitor Mode: External Duration (sec)2399: 0 Pattern: Normal: <= 5 Contractions in 10 Minutes Resting Tone Oriental: Relaxed Heart Rate FHR Baseline Rate: 130 Monitor Mode: External US FHR Baseline Changes: No Baseline Change Variability: Moderate 6-25 bpm Accelerations: 15X15 Decelerations: None Category: Category I Datetime: 03/26/2017 08:55 Labor Evaluation Frequency: 0 Monitor Mode: External Duration (sec)2399: 0 Pattern: Normal: <= 5 Contractions in 10 Minutes Resting Tone Oriental: Relaxed Contraction Comments: DENIES ANY UC'S Heart Rate FHR Baseline Rate: 140 Monitor Mode: External US FHR Baseline Changes: No Baseline Change Variability: Moderate 6-25 bpm Accelerations: 15X15 Decelerations: None Category: Category I Datetime: 03/26/2017 08:00 Labor Evaluation Frequency: 0 Monitor Mode: External Duration (sec)2399: 0 Pattern: Normal: <= 5 Contractions in 10 Minutes Resting Tone Oriental: Relaxed Contraction Comments: pt denies feeling any uc's Heart Rate FHR Baseline Rate: 140 Monitor Mode: External US FHR Baseline Changes: No Baseline Change Variability: Moderate 6-25 bpm Accelerations: 15X15 Decelerations: None Category: Category I Datetime: 03/26/2017 07:29 Assessment Type: Ongoing Assessment Maternal Assessment Level of Consciousness: Fully Conscious DTR's/Clonus: DTRs 2+; No Clonus Headache: Denies Blurred Vision: No Respiratory Effort: Unlabored; Regular Rhythm; Equal Expansion Breath Sounds, Left: Clear and Equal Breath Sounds, Right: Clear and Equal Nausea/Vomiting: Denies RUQ Epigastric Pain: Denies Lower Extremities Edema: None Degree: None Upper Extremities Edema: None Degree: None Facial Edema: None Fall Risk Assessment History of Falling: (0) No Secondary Diagnosis: (0) No Ambulatory Aid: (0) Bedrest/Nurse Assist IV Therapy: (20) Yes Gait: (0) Normal/Bedrest/Immobile Mental Status: (0) Oriented to Own Ability Fall Score: 20 Fall Risk Score Definition: No Risk: No action required Datetime: 03/26/2017 07:17 Headache: Denies Pain Assessment Pain Scale: 0 Pain Presence: None/Denies Pain Type: N/A Datetime: 03/26/2017 07:00 Labor Evaluation Frequency: x2 Monitor Mode: External Duration (sec)2399: 70-100 Quality: Mild Pattern: Normal: <= 5 Contractions in 10 Minutes Resting Tone Oriental: Relaxed Heart Rate FHR Baseline Rate: 140 Monitor Mode: External US FHR Baseline Changes: No Baseline Change Variability: Moderate 6-25 bpm Accelerations: 15X15 Decelerations: None Category: Category I Datetime: 03/26/2017 06:40 Assessment Type: Admission Assessment Vaginal Bleeding: None Maternal Assessment Level of Consciousness: Fully Conscious DTR's/Clonus: DTRs 2+; No Clonus Headache: Denies Blurred Vision: No Respiratory Effort: Unlabored; Regular Rhythm; Equal Expansion Breath Sounds, Left: Clear and Equal Breath Sounds, Right: Clear and Equal Nausea/Vomiting: Denies RUQ Epigastric Pain: Denies Lower Extremities Edema: None Degree: None Upper Extremities Edema: None Degree: None Facial Edema: None Temperature Route: Oral Fall Risk Assessment History of Falling: (0) No Secondary Diagnosis: (0) No Ambulatory Aid: (0) Bedrest/Nurse Assist IV Therapy: (20) Yes Gait: (0) Normal/Bedrest/Immobile Mental Status: (0) Oriented to Own Ability Fall Score: 20 Fall Risk Score Definition: No Risk: No action required Pain Assessment Pain Scale: 4 Pain Presence: Intermittent Pain Type: Contraction Pain Location: Abdomen Membrane Status: Intact Datetime: 03/26/2017 06:30 Stage of : Antepartum Time of Arrival: 03/26/2017 06:30 EGA: 35.1 Arrived By: Wheelchair Arrived From: TRIAGE Datetime: 03/26/2017 06:08 Stage of : OB Triage Datetime: 03/26/2017 06:07 Stage of : OB Triage Labor Evaluation Frequency: X2 Monitor Mode: External Duration (sec)2399: 40 Pattern: Normal: <= 5 Contractions in 10 Minutes Resting Tone Oriental: Relaxed Heart Rate FHR Baseline Rate: 145 Monitor Mode: External US Variability: Moderate 6-25 bpm Accelerations: 15X15 Decelerations: None Category: Category I Datetime: 03/26/2017 05:05 Labor Evaluation Frequency: NONE Monitor Mode: External Duration (sec)2399: NONE Heart Rate FHR Baseline Rate: 155 Monitor Mode: External US Variability: Moderate 6-25 bpm Accelerations: 15X15 Decelerations: Prolonged Category: Category II Comments: MONA 110 BPM X 90 SECONDS WITH RETURN TO BASELINE AND MODERATE VARIABILITY. Datetime: 03/26/2017 04:50 Stage of : OB Triage Labor Evaluation Frequency: NONE Monitor Mode: External Duration (sec)2399: NONE Resting Tone Oriental: Relaxed Heart Rate FHR Baseline Rate: 155 Monitor Mode: External US Variability: Moderate 6-25 bpm Accelerations: 15X15 Decelerations: None Category: Category I Datetime: 03/26/2017 04:49 Monitor Mode: External Datetime: 03/26/2017 04:47 Contraction Comments: ABDOMEN SOFT UPON PALPATION. PT REPORTED FEELING LESS CONTRACTIONS. Pain Assessment Pain Scale: 4 Pain Presence: Intermittent Pain Type: Contraction Pain Location: Abdomen Datetime: 03/26/2017 04:23 Monitor Mode: External Datetime: 03/26/2017 04:20 Stage of : OB Triage Maternal Assessment Level of Consciousness: Fully Conscious DTR's/Clonus: DTRs 2+; No Clonus Headache: Denies Blurred Vision: No Respiratory Effort: Unlabored; Regular Rhythm; Equal Expansion Breath Sounds, Left: Clear and Equal Breath Sounds, Right: Clear and Equal Nausea/Vomiting: Denies RUQ Epigastric Pain: Denies Facial Edema: None Temperature Route: Oral Fall Risk Assessment History of Falling: (0) No Secondary Diagnosis: (0) No Ambulatory Aid: (0) Bedrest/Nurse Assist IV Therapy: (0) No Gait: (0) Normal/Bedrest/Immobile Mental Status: (0) Oriented to Own Ability Fall Score: 0 Fall Risk Score Definition: No Risk: No action required Pain Assessment Pain Scale: 6 Pain Presence: Intermittent Pain Type: Contraction Pain Location: Abdomen Datetime: 03/26/2017 04:01 Contraction Comments: ABDOMEN SOFT UPON PALPATION. Datetime: 03/26/2017 03:40 Stage of : OB Triage Labor Evaluation Frequency: NONE Monitor Mode: External Duration (sec)2399: NONE Resting Tone Oriental: Relaxed Contraction Comments: ABDOMEN SOFT UPON PALPATION Heart Rate FHR Baseline Rate: 175 Monitor Mode: External US Variability: Moderate 6-25 bpm Accelerations: 15X15 Datetime: 03/26/2017 03:30 Vaginal Exam Dilatation (cms): 0.0 Effacement (%): 50 Station: -3 Exam By: CHEVY DOWNING Datetime: 03/26/2017 03:10 Contraction Comments: APPLIED Comments: APPLIED Datetime: 03/26/2017 03:00 Time of Arrival: 03/26/2017 02:55 EGA: 35.1 Arrived By: Wheelchair Arrived From: Home Chief Complaint: ABDOMINAL PAIN, CONTRACTIONS SINCE 3PM, DFM Movement: Present Rupture of Membranes: Unsure Vaginal Bleeding: None Vaginal Discharge: Denies Recent Sexual Intercouse: Denies Abdominal Trauma: Not Applicable Patient Complaints: Contractions; Other Time Provider Notified: 03/26/2017 04:15 Provider Notified: DR. CALLOWAY Initial Plan: EFM, SVE, CALL OB, CBC, CMP, U/A, URIC ACID, EFW, BPP, ROM +, IV HYDRATION Datetime: 02/26/2017 19:35 Fall Score: 0 Fall Risk Score Definition: No Risk: No action required Datetime: 02/26/2017 18:30 EGA: 31.1 Datetime: 02/26/2017 18:17 Fall Score: 0 Fall Risk Score Definition: No Risk: No action required
--- NOTE | 2017-03-29 18:22 | QN ---
Documentation Comment iup 38 weeks nst vss exam wnl us wnl a/p iup 38 weeks nst bpp wnl dc home GABY HERNANDEZ MD Mar 29, 2017 18:22
== END 2017-03-29 13:20 | disposition home or self-care (01) ==
LOC: L-D 11:30 → OBT 11:30
PROVIDERS: ATTEND Obstetrics & Gynecology
DX: O26.893 Other specified pregnancy related conditions, third trimester (principal); R10.9 Unspecified abdominal pain; Z3A.35 35 weeks gestation of pregnancy
CPT/HCPCS: 76818; Z7500; G0463

== ENCOUNTER 2017-04-22 09:46 | Inpatient (IN) | payer OTHER ==
[~2017-04-22] VITALS: Ht 157.5 cm; Wt 87.6 kg
[2017-04-22] MEDS ORDERED: LACTATED RINGER'S 1,000 ML IV SCH (10:40)
[2017-04-22] MEDS ORDERED: LACTATED RINGER'S 1,000 ML IV PRN (10:40)
[2017-04-22 10:56] VITALS: Ht 157.5 cm; Wt 87.6 kg
[2017-04-22] MEDS ORDERED: CARBOPROST 250 MCG INJ IM PRN ×2 (11:00→17:00)
[2017-04-22] MEDS ORDERED: METHYLERGONOVINE 0.2 MG INJ IM PRN ×2 (11:00→17:00)
[2017-04-22] MEDS ORDERED: CEFAZOLIN 2 GM/50 ML (PMX) 50 ML IV ONE (11:00)
[2017-04-22] MEDS ORDERED: MISOPROSTOL 200 MCG TAB PR PRN ×2 (11:00→17:00)
[2017-04-22] MEDS ORDERED: LIDOCAINE 1% (MPF) 30 ML INJ INJ PRN (11:00)
[2017-04-22] MEDS ORDERED: OXYTOCIN 30 UNITS/LR 500 ML IV SCH ×2 (11:00)
[2017-04-22] MEDS ORDERED: OXYTOCIN 30 UNITS/LR 500 ML IV PRN ×2 (11:00→17:00)
[2017-04-22 11:08] LABS: BASOPHIL # 0.1 10^3/ul (0.0-0.1); BASOPHILS % 0.4 % (0.0-2.0); EOSINOPHILS # 0.1 10^3/ul (0.0-0.5); EOSINOPHILS % 0.9 % (0.0-7.0); HEMATOCRIT 40.2 % (37.0-47.0); HEMOGLOBIN 14.1 g/dl (12.0-16.0); LYMPHOCYTES # 2.1 10^3/ul (0.8-2.9); LYMPHOCYTES % 19.2 % (15.0-51.0); MEAN CORPUSCULAR HEMOGLOBIN 30.4 pg (29.0-33.0); MEAN CORPUSCULAR HGB CONC 35.1 g/dl (32.0-37.0); MEAN CORPUSCULAR VOLUME 86.6 fl (82.0-101.0); MEAN PLATELET VOLUME 11.4 fl (7.4-10.4); MONOCYTE # 0.5 10^3/ul (0.3-0.9); MONOCYTES % 4.7 % (0.0-11.0); NEUTROPHIL # 8.2 10^3/ul (1.6-7.5); NEUTROPHILS % 73.5 % (39.0-77.0); PLATELET COUNT 150 10^3/UL (140-415); RED BLOOD COUNT 4.64 10^6/ul (4.20-5.40); RED CELL DISTRIBUTION WIDTH 13.5 % (11.5-14.5); WHITE BLOOD COUNT 11.1 10^3/ul (4.8-10.8)
[2017-04-22 11:32] LABS: INR 0.93; PARTIAL THROMBOPLASTIN TIME 25.7 Sec (25.0-35.0); PROTIME 12.6 Sec (11.9-14.9)
[2017-04-22] MEDS ORDERED: METOCLOPRAMIDE 10 MG INJ ONE (12:36)
[2017-04-22] MEDS ORDERED: OXYTOCIN 30 UNITS/LR 500 ML IV ONE (12:36)
[2017-04-22] MEDS ORDERED: ONDANSETRON 4 MG INJ ONE (12:36)
[2017-04-22] MEDS ORDERED: EPHEDrine SULFATE 50 MG/5 ML SYG ONE (12:36)
[2017-04-22] MEDS ORDERED: OXYTOCIN 10 UNIT INJ ONE (12:37)
[2017-04-22] MEDS ORDERED: morphine SULFATE/PF (10 MG/10 ML) INJ ONE (12:37)
--- NOTE | 2017-04-22 14:23 | OPR ---
Operative Report Planned Procedure Free Text/Dictation 36 years old female history of 3 previous section EDC April 22, 2017 admitted to the hospital for repeat bilateral tubal ligation patient has been counseled regarding the complication of the surgery including but not limited to bowel bladder injury infection hemorrhage wound hematoma wound infection failure rate of tubal ligation increased, increased risk of ectopic , failure to conceive in the future, all her questions answered she would like to proceed with repeat for the fourth time and bilateral tubal ligation. Procedure date Apr 22, 2017 Procedure(s) Repeat bilateral tubal ligation Performed by see signature line Crane Assembler KAITLIN HONG Anesthesiologist: SRI BURCIAGA MD Pre-procedure diagnosis Repeat for the fourth time, bilateral tubal ligation Anesthesia Type: spinal Post-Procedure Post-procedure diagnosis Same as above Findings Live Baby boy 9 and 9 nuchal cord 1 Estimated Blood Loss: 600 - 700 mls Specimen(s) none Grafts/Implant(s) none Complication(s) none Pt Condition post procedure: stable Procedure Description Under satisfactory spinal anesthesia patient prepped and draped and placed in supine position. Pfannenstiel incision was made. Old scar was removed, incision carried through the subcutaneous tissue. Fascia incised to the length of incision. Rectus muscle divided in midline. Peritoneum exposed and entered to a vertical incision. Exploration of abdomen revealed [gravid uterus at term normal-appearing tubes and ovaries.] Bladder flap was developed. Transverse incision was made in the lower segment of the uterus. Amniotic sac ruptured, [ clear amniotic fluid noted.] Live baby boy was delivered from unengaged vertex.Naso oropharyngeal suction was performed. Baby handed to the team for immediate attention. Patient received 20 units of Pitocin. Placenta delivered manually intact. Uterine cavity cleaned with a wet sponge and drainage established. Uterus closed in 2 layers using Monocryl #1 in continuous fashion. Bilateral tubal ligation performed by identifying the fimbria and ampullar section of the right fallopian tube grasped by a Felix suture material used #0 plain catgut which was reinforced with the same suture material that segment of the tube was excised cut end of the tube was cauterized and the specimen submitted to the pathology the same procedure performed for the opposite side, peritoneal cavity irrigated with warm saline. Sponge needle instrument reported to be correct. Abdominal peritoneum closed with 2-0 chromic catgut continuously. Fascia closed with #1 PDS in a continuous fashion. Subcutaneous tissue irrigated with warm saline and approximated with 2-0 chromic catgut skin closed with N sorb. Estimated blood loss [6-700 cc]. Urine bag containing [200] mL of [clear] urine. Patient tolerated procedure well and transferred to recovery room in good condition. ALYSON SPEARS MD Apr 22, 2017 14:21
[2017-04-22] MEDS ORDERED: morphine SULFATE/PF (10 MG/10 ML) INJ SPINAL ONE (15:00)
[2017-04-22] MEDS ORDERED: DIPHENHYDRAMINE 50 MG INJ IV PRN (15:00)
[2017-04-22] MEDS ORDERED: ONDANSETRON 4 MG INJ IV PRN (15:00)
[2017-04-22] MEDS ORDERED: EPHEDrine SULFATE 50 MG/5 ML SYG IV PRN (15:00)
[2017-04-22] MEDS ORDERED: morphine 2 MG INJ IV PRN (15:00)
[2017-04-22] MEDS ORDERED: morphine 4 MG/ML VIAL IV PRN (15:00)
[2017-04-22] MEDS ORDERED: NALOXONE (0.4 MG/ML) INJ IV PRN (15:00)
[2017-04-22 16:45] VITALS: BP 115/82; PULSE 94; RESP 18
[2017-04-22] MEDS ORDERED: HYDROCODONE/APAP (5/325) TAB PO PRN ×2 (17:00)
[2017-04-22] MEDS ORDERED: LANOLIN 7 GM TUBE TOP PRN (17:00)
[2017-04-22] MEDS ORDERED: OXYCODONE/ACETAMINOPHEN (5/325) TAB PO PRN (17:00)
[2017-04-22 17:45] VITALS: BP 110/69; PULSE 96; RESP 18
[2017-04-22] MEDS: OXYTOCIN 30 UNITS/LR 500 ML IV SCH ×2 (17:46→23:12)
[2017-04-22] MEDS: IBUPROFEN 600 MG TAB PO SCH (17:48)
[2017-04-22 19:30] VITALS: BP 119/81; RESP 18
[2017-04-22] MEDS ORDERED: CEFAZOLIN 1 GM/50 ML (PMX) 50 ML IVPB SCH (21:00)
[2017-04-22] MEDS: SENNA/DOCUSATE NA (8.6MG/50MG) TAB PO SCH (21:13)
[2017-04-23 04:00] VITALS: BP 114/72; PULSE 100; RESP 18
[2017-04-23] MEDS: OXYTOCIN 30 UNITS/LR 500 ML IV SCH ×2 (04:53→08:28)
[2017-04-23] MEDS: KETOROLAC 30 MG INJ IV PRN ×2 (05:27→11:46)
[2017-04-23] MEDS: IBUPROFEN 600 MG TAB PO SCH ×4 (06:00→17:27)
[2017-04-23 08:00] VITALS: BP 107/66; PULSE 87; RESP 18
[2017-04-23] MEDS: SENNA/DOCUSATE NA (8.6MG/50MG) TAB PO SCH ×2 (08:24→21:21)
--- NOTE | 2017-04-23 09:51 | HP ---
Date/Time of Note Date/Time of Note DATE: 04/23/17 TIME: 09:46 OB - History Hx of Present Free Text/Dictation This is a 36 years old female history of previous 3 previous section with a EDC April 29, 2017 admitted at 39 weeks gestation for repeat section patient has been under the care of the [facility] and her course was not complicated with gestational diabetes -induced hypertension or any other serious medical or surgical conditions. Chief Complaint: 39 weeks history of 3 previous section Estimated Due Date: Apr 29, 2017 : 5 Para: 4 Care: Good Care Ultrasounds: Normal mid trimester US Obstetrical Complications: None Past Family/Social History * Past Medical, Surgical, Family and Obstetric Histories reviewed from chart. Rubella: immune RPR/VDRL: Negative GBS Status: Negative HBsAG: Negative OB Admission Exam Vital Signs Vital Signs Vital Signs Date Time Temp Pulse Resp B/P Pulse Ox O2 Delivery O2 Flow Rate FiO2 04/23/17 04:00 98.5 100 18 114/72 Room Air Physical Exam HEENT: WNL Lungs: Clear, Equal Abdomen: WNL Membranes: Intact Accelerations: Accelerations Present Decelerations: No Decelerations Varibility: Moderate Last 72 hours Lab Results CBC & BMP 04/22/17 10:43 OB Assessment/Plan Reason for admission: other (Repeat ) Other plan: 36 years old history of 3 previous section admitted at 39 weeks gestation for repeat section complication of the surgery including but not limited to bowel bladder injury infection hemorrhage wound hematoma discussed with the patient and she would like to proceed with the operation. ALYSON SPEARS MD Apr 23, 2017 09:50
[2017-04-23 10:03] LABS: BASOPHILS % 0.3 % (0.0-2.0); EOSINOPHILS # 0.1 10^3/ul (0.0-0.5); EOSINOPHILS % 0.9 % (0.0-7.0); HEMATOCRIT 32.4 % (37.0-47.0); HEMOGLOBIN 11.2 g/dl (12.0-16.0); LYMPHOCYTES # 1.5 10^3/ul (0.8-2.9); LYMPHOCYTES % 14.2 % (15.0-51.0); MEAN CORPUSCULAR HEMOGLOBIN 30.6 pg (29.0-33.0); MEAN CORPUSCULAR HGB CONC 34.6 g/dl (32.0-37.0); MEAN CORPUSCULAR VOLUME 88.5 fl (82.0-101.0); MEAN PLATELET VOLUME 11.6 fl (7.4-10.4); MONOCYTE # 0.5 10^3/ul (0.3-0.9); NEUTROPHIL # 8.2 10^3/ul (1.6-7.5); NEUTROPHILS % 78.5 % (39.0-77.0); PLATELET COUNT 117 10^3/UL (140-415); RED BLOOD COUNT 3.66 10^6/ul (4.20-5.40); RED CELL DISTRIBUTION WIDTH 14.2 % (11.5-14.5); WHITE BLOOD COUNT 10.5 10^3/ul (4.8-10.8)
[2017-04-23 11:46] VITALS: BP 112/60; PULSE 18; RESP 18
[2017-04-23 15:42] VITALS: BP 115/68; PULSE 89; RESP 18
[2017-04-23 20:15] VITALS: BP 110/68; PULSE 98; RESP 18
[2017-04-23] MEDS: OXYCODONE/ACETAMINOPHEN (5/325) TAB PO PRN (23:01)
[2017-04-24] MEDS: IBUPROFEN 600 MG TAB PO SCH ×4 (00:24→17:45)
[2017-04-24 04:00] VITALS: BP 105/67; PULSE 92; RESP 18
[2017-04-24 08:00] VITALS: BP 119/80; PULSE 93; RESP 18
[2017-04-24] MEDS: OXYCODONE/ACETAMINOPHEN (5/325) TAB PO PRN (08:18)
[2017-04-24] MEDS: SENNA/DOCUSATE NA (8.6MG/50MG) TAB PO SCH ×2 (08:19→21:00)
--- NOTE | 2017-04-24 13:59 | QN ---
Documentation Comment No complaint Afebrile VSS Abdomen soft ND POD #2 Stable Continue present care. PJ ROSENBERG MD Apr 24, 2017 13:59
[2017-04-24] MEDS ORDERED: MAGNESIUM HYDROXIDE 30ML CUP PO ONE (14:30)
[2017-04-24 16:00] VITALS: BP 126/92; PULSE 101; RESP 17; RESP 18
[2017-04-24 20:00] VITALS: BP 129/85; PULSE 96; RESP 18
[2017-04-25] MEDS: IBUPROFEN 600 MG TAB PO SCH ×3 (00:21→11:25)
[2017-04-25 03:30] VITALS: BP 129/78; PULSE 100; RESP 18
[2017-04-25 07:50] VITALS: BP 137/89; PULSE 91; RESP 18
[2017-04-25] MEDS: SENNA/DOCUSATE NA (8.6MG/50MG) TAB PO SCH (08:21)
[2017-04-25] MEDS ORDERED: DIPHTH/TET/ACEL PERTUSS (ADULT) 0.5 ML VIAL IM* ONE (09:00)
--- NOTE | 2017-04-25 12:16 | DS ---
Date/Time of Note Date/Time of Note DATE: 04/25/17 TIME: 12:15 Obstetrical Discharge Record Final Diagnosis Final Diagnosis: Term delivered Vaginal Delivery Obstetrical Delivery: Bilateral Tubal Ligation Section Section: Repeat Condition on Discharge Physical Assessment Voiding: Yes Bowel Movement: Yes Breast: Soft, non-tender, Filling Fundus: Firm Abdomen and Incision: incision intact Calf Tenderness: No Patient Condition: Stable PJ ROSENBERG MD Apr 25, 2017 12:16
== END 2017-04-25 15:19 | disposition home or self-care (01) | DRG 766 ==
LOC: L-D 09:46 → PP1 16:35
PROVIDERS: ADMIT Obstetrics & Gynecology; ATTEND Obstetrics & Gynecology
PROC: 0UL70ZZ Occlusion of Bilateral Fallopian Tubes, Open Approach (ICD-10-PCS; 2017-04-22)
PROC: 10D00Z1 Extraction of Products of Conception, Low, Open Approach (ICD-10-PCS; principal; 2017-04-22 12:30)
DX: O99.214 Obesity complicating childbirth (principal); E66.9 Obesity, unspecified; Z68.35 Body mass index [BMI] 35.0-35.9, adult; O16.4 Unspecified maternal hypertension, complicating childbirth; Z30.2 Encounter for sterilization; Z3A.39 39 weeks gestation of pregnancy; Z37.0 Single live birth
CPT/HCPCS: 85025; 85610; 85730; 86592; 86850; 86885; 86900; 86901; 86920; 87340; 88302; 90715; 99464; J0690; J1885; J2274; J2405; J2590; J2765; J2790; J7120

== ENCOUNTER 2018-09-27 22:41 | Emergency (ER) | payer OTHER ==
[~2018-09-27] VITALS: Wt 81.1 kg
[~2018-09-27 22:41] MED LIST changes: -ACET500C5 PO
[2018-09-28] MEDS ORDERED: ONDANSETRON 4 MG INJ IV STA (00:06)
[2018-09-28] MEDS ORDERED: LORAZEPAM 2 MG INJ IV ONE (00:30)
[2018-09-28] MEDS ORDERED: MECL12.574 PO (01:57)
[2018-09-28 02:16] VITALS: BP 112/79; PULSE 76; RESP 16
--- NOTE | 2018-09-28 02:23 | ERD ---
ER Documentation Chief Complaint Chief Complaint dizziness/vomiting/both hand numbness x 2 days HPI This is a very pleasant 30-year-old female comes in with dizziness bilateral hand numbness perioral numbness for the past 2 days. She denies any fevers or chills. Denies any nausea vomiting. Denies any focal neurologic complaints. She decision vomited once. She felt dizzy. She denies any current issues. ROS All systems reviewed and are negative except as per history of present illness. Medications Home Meds Active Scripts Meclizine Hcl* (Antivert*) 12.5 Mg Tab, 12.5 MG PO Q6H PRN for DIZZINESS, #20 TAB Prov:ILIANA PASCUAL 09/28/18 Reported Medications Folic Acid* (Folic Acid*) 1 Mg Tablet, 1 MG PO DAILY, TAB 02/26/17 Ferrous Sulfate* (Ferrous Sulfate*) 325 Mg Tabec, 325 MG PO DAILY, TAB 02/26/17 Calcium Carbonate (Calcium 500) 1 Tab Tablet, 1 TAB PO DAILY 09/26/13 Vits W-Ca,Fe,Fa(<1MG) ( Vitamins) 1 Tab Tablet, 1 TAB PO DAILY 09/26/13 Allergies Allergies: Coded Allergies: No Known Allergy (Unverified , 03/29/17) PMhx/Soc History of Surgery: No ([facility].) Hx Alcohol Use: No Hx Substance Use: No Hx Tobacco Use: No Smoking Status: Never smoker Physical Exam Vitals Vital Signs Date Temp Pulse Resp B/P (MAP) Pulse Ox O2 O2 Flow FiO2 Time Delivery Rate 09/28/18 98.5 74 19 106/84 98 Room Air 01:16 (91) 09/28/18 98.5 74 19 115/88 98 Room Air 00:35 (97) 09/28/18 Nasal 00:11 Cannula 09/28/18 98.5 89 19 158/82 98 Room Air 00:11 (107) 09/27/18 98.5 78 18 163/100 98 22:51 (121) Physical Exam Const: No acute distress Head: Atraumatic Eyes: Normal Conjunctiva ENT: Normal External Ears, Nose and Mouth. Neck: Full range of motion. No meningismus. Resp: Clear to auscultation bilaterally Cardio: Regular rate and rhythm, no murmurs Abd: Soft, non tender, non distended. Normal bowel sounds Skin: No petechiae or rashes Back: No midline or flank tenderness Ext: No cyanosis, or edema Neur: Awake and alert Psych: Normal Mood and Affect Result Diagram: 09/28/182909/28/1829 Results 24 hrs Laboratory Tests Test 09/28/18 00:30 White Blood Count 11.9 10^3/ul Red Blood Count 5.04 10^6/ul Hemoglobin 14.9 g/dl Hematocrit 43.0 % Mean Corpuscular Volume 85.3 fl Mean Corpuscular Hemoglobin 29.6 pg Mean Corpuscular Hemoglobin Concent 34.7 g/dl Red Cell Distribution Width 11.9 % Platelet Count 216 10^3/UL Mean Platelet Volume 10.3 fl Immature Granulocytes % 0.300 % Neutrophils % 54.6 % Lymphocytes % 38.6 % Monocytes % 4.5 % Eosinophils % 1.7 % Basophils % 0.3 % Nucleated Red Blood Cells % 0.0 /100WBC Immature Granulocytes # 0.030 10^3/ul Neutrophils # 6.5 10^3/ul Lymphocytes # 4.6 10^3/ul Monocytes # 0.5 10^3/ul Eosinophils # 0.2 10^3/ul Basophils # 0.0 10^3/ul Nucleated Red Blood Cells # 0.0 10^3/ul Sodium Level 141 mmol/L Potassium Level 3.9 mmol/L Chloride Level 105 mmol/L Carbon Dioxide Level 27 mmol/L Anion Gap 9 Blood Urea Nitrogen 11 mg/dl Creatinine 0.51 mg/dl Est Glomerular Filtrat Rate mL/min > 60 mL/min Glucose Level 88 mg/dl Calcium Level 9.7 mg/dl Total Bilirubin 0.5 mg/dl Direct Bilirubin 0.00 mg/dl Indirect Bilirubin 0.5 mg/dl Aspartate Amino Transf (AST/SGOT) 20 IU/L Alanine Aminotransferase (ALT/SGPT) 29 IU/L Alkaline Phosphatase 87 IU/L Creatine Kinase 53 IU/L Creatine Kinase Index 1.0 Creatinine Kinase MB (Mass) 0.52 ng/ml Troponin I < 0.012 ng/ml B-Type Natriuretic Peptide 25 PG/ML Total Protein 7.3 g/dl Albumin 4.4 g/dl Globulin 2.90 g/dl Albumin/Globulin Ratio 1.51 Current Medications Medications Dose Sig/Mumtaz Start Time Status Last (Trade) Ordered Route PRN Stop Time Admin Dose Reason Admin Ondansetron 4 mg ONCE STAT 09/28/18 DC 09/28/18 HCl (Zofran IV 00:06 00:31 Inj) 09/28/18 00:08 Lorazepam 1 mg ONCE ONCE 09/28/18 DC 09/28/18 (Ativan) IV 00:30 00:31 09/28/18 00:31 Procedures/MDM EKG: Rate/Rhythm: [Normal Sinus Rhythm] QRS, ST, T-waves: [No changes consistent w/ acute ischemia] Impression: [No evidence of ischemia or arrhythmia] Chest X-ray 1V Interpreted by me: Soft Tissue: No acute abnormalities Bones: No acute abnormalities Mediastinum/Cardiac Silhouette/Lungs: [No acute abnormalities] Medical decision making: This very pleasant 30-year-old female comes in with symptoms consistent with anxiety. At this point is clinically stable. There is no evidence of cardiac disease. She is well-appearing. She stable for trial of outpatient management. I told to return for any worsening symptomology. Begin meclizine for dizziness. I did not think that the patient has any focal neurological issues at this time. Departure Diagnosis: Primary Impression: Dizziness Condition: Stable Patient Instructions: Dizziness, Unk Cause ILIANA PASCUAL September 28, 2018 02:14
--- NOTE | 2018-10-01 15:04 | RADRPT ---
Vent Rate: 70 bpm RR Interval: 0 msec UT Interval: 160 msec QRS Duration: 74 msec QT Interval: 386 msec QTC Interval: 416 msec P-R-T [place]: 54 - 5 - 30 degrees Normal sinus rhythm Normal ECG Electronically Signed By: [facility]
== END 2018-09-28 02:18 | disposition home or self-care (01) ==
LOC: E/R 22:41
DX: R42 Dizziness and giddiness (principal)
CPT/HCPCS: 36415; 71045; 80053; 82550; 82553; 83880; 84484; 85025; 93005; 96374; 96375; J2060; J2405; Z7502